=== PATIENT | female | born 1980 | race Caucasian/White ===

== ENCOUNTER → 2017-05-02 | Outpatient (CLI) | payer OTHER ==
[~2017-05-02] MED LIST: LORA-741 PO
== END | disposition home or self-care (01) ==
LOC: C.PAPS 08:59 → MERGE 08:59
PROVIDERS: ATTEND Physician Assistant
DX: Z12.4 Encounter for screening for malignant neoplasm of cervix (principal)

== ENCOUNTER → 2018-04-04 | Outpatient (CLI) | payer OTHER ==
[2018-04-04 15:51] LABS: BASO % 0.4 %; BASO ABS # 0.04 K/uL (0-0.2); EOS % 1.9 %; EOS ABS # 0.17 K/uL (0-0.5); HEMATOCRIT 41.1 % (37-47); HEMOGLOBIN 14.5 g/dL (12.0-16.0); IG# 0.01 K/uL (0.00-0.02); LYMPH % 21.6 %; LYMPH ABS # 1.95 K/uL (1.2-3.4); MEAN CELL VOLUME 89.5 fL (80-100); MEAN CORPUSCULAR HEMOGLOBIN 31.6 pg (25-34); MEAN CORPUSCULAR HGB CONC 35.3 g/dl (32-36); MEAN PLATELET VOLUME 8.9 fL (7.4-10.4); MONO % 6.7 %; NEUT % 69.3 %; NEUT ABS # 6.24 K/uL (1.4-6.5); PLATELET COUNT 303 K/uL (130-400); RED CELL DISTRIBUTION WIDTH CV 12.5 % (11.5-14.5); RED CELL DISTRIBUTION WIDTH SD 40.3 fL (36.4-46.3); WHITE BLOOD COUNT 9.01 K/uL (4.8-10.8)
[2018-04-04 16:37] LABS: ALKALINE PHOSPHATASE 50 U/L (45-117); ALT/SGPT 26 U/L (12-78); AST/SGOT 13 U/L (15-37); BLOOD UREA NITROGEN 18 mg/dl (7-18); CARBON DIOXIDE 26 mmol/L (21-32); CREATININE 1.01 mg/dl (0.60-1.20); GLUCOSE 94 mg/dl (70-99); POTASSIUM 3.8 mmol/L (3.5-5.1); SODIUM 139 mmol/L (136-145); TOTAL PROTEIN 7.9 gm/dl (6.4-8.2)
== END | disposition home or self-care (01) ==
LOC: C.LAB1850 15:04
PROVIDERS: ATTEND Physician Assistant
DX: Z00.00 Encounter for general adult medical examination without abnormal findings (principal); Z01.419 Encounter for gynecological examination (general) (routine) without abnormal findings; R00.2 Palpitations; F41.8 Other specified anxiety disorders; L27.0 Generalized skin eruption due to drugs and medicaments taken internally

== ENCOUNTER 2022-09-11 06:12 | Inpatient (IN) ==
--- NOTE | 2022-09-07 15:49 | Anesthesiology Consultation ---
Date of Service September 07, 2022 Assessment & Plan (1) Encounter for pre-operative examination: - COVID screening: Per assessment on 09/07: No known COVID-19 positive contacts or current COVID-19 related symptoms. Travel screen negative. Patient vaccinated. At surgeon discretion if preop Covid testing being done. - Check test AM DOS - Mild hypokalemia: Potassium 3.1 on recent labs. Will recheck potassium level AM DOS. Chart Review Chart Review: Acceptable Risk for Surgery and Patient NOT seen in Pre Admission Testing Consults Requested none ASA ASA2 Proposed Anesthesia Anesthesia Type: General Risk / Benefits Reviewed With: PT / POA / Parent / Guardian, Accepts Plan and Informed Consent Obtained History Surgery Operation Date: 09/11/22 07:45 Proposed Procedures p C5-C7 Anterior Cervical Discectomy and Fusion, Spinal Cord Monitoring - Dylan Epstein, Height/Weight Height: 5 ft 9 in Weight: 86.183 kg Allergies Allergy/AdvReac Type Severity Reaction Status Date / Time amoxicillin Allergy Severe full body Verified 09/11/22 06:31 hives clavulanic acid Allergy Severe full body Verified 09/11/22 06:31 hives Medications Home Medications Medication Instructions Recorded Confirmed Last Taken lorazepam 0.5 mg tablet 0.5 mg PO DAILY PRN anxiety #30 06/10/20 09/11/22 Unknown tabs multivitamin (Daily Multi-Vitamin 1 tab PO HS 06/10/20 09/11/22 09/04/22 tablet) baclofen 10 mg tablet 10 mg PO BID PRN pain/spasm #60 07/18/22 09/11/22 Unknown tabs gabapentin 300 mg capsule 300 mg PO TID #90 caps 07/18/22 09/11/22 Unknown amlodipine 2.5 mg tablet 2.5 mg PO QAM 09/07/22 09/11/22 09/11/22 05:00 levothyroxine 50 mcg tablet 50 mcg PO QAM 09/07/22 09/11/22 09/11/22 04:00 losartan 50 mg-hydrochlorothiazide 1 tab PO QAM 09/07/22 09/11/22 09/10/22 08:00 12.5 mg tablet sertraline 50 mg tablet 50 mg PO HS 09/07/22 09/11/22 09/10/22 21:00 NPO Date Last Intake of Fluids: 09/10/22 Time Last Intake of Fluids: 19:30 Date Last Intake of Solids: 09/10/22 Past Medical History Medical History Anxiety Dyslipidemia no meds Herniation of cervical intervertebral disc with radiculopathy C5-6 and C6-7 right History of COVID-19 2 yrs ago > not hospitalized Hypertension Hypothyroidism PVC (premature ventricular contraction) Hx, no PVCs/arrhythmia Exercise / Class Metabolic Activity II 4-5 Yardwork/Stairs/Walk up hill Past Family History Family History Grandfather (Paternal) Colorectal cancer Myocardial infarction Grandfather (Maternal) Lung cancer Grandmother (Maternal) Pancreatic cancer Father , Passed at 62yrs Hypertension Traumatic brain injury Mother Borderline blood pressure Denies family history of Ovarian cancer Prostate cancer Breast cancer Uterine cancer Past Surgical History Surgical History Delivery by section x2 [place] teeth extracted Past Anesthesia History No Hx of Anesthesia Complications and No Family Hx of Anesthesia Complications History of PONV No Hx of PONV and No Hx of Motion Sickness Social History Smoking Status: Former smoker Hx Alcohol Use: Yes Hx Substance Use: No Physical Exam ENMT Mouth: no dentition abnormality Thyromental Distance: > or= 3.5 Finger Breadths Mallampati Class: II Neck normal visual inspection Respiratory normal respiratory effort Auscultation: lungs clear to auscultation bilaterally Cardiovascular Rate/Rhythm: regular rate and regular rhythm Lab Results Anesthesia Preop Results Results Anesthesia Widget: WBC 7.22 K/ul (4.8-10.8) 08/30/22 Hgb 13.2 g/dl (12.0-16.0) 08/30/22 Hct 37.4 % (34.1-44.9) 08/30/22 Plt 358 K/uL (130-400) 08/30/22 Na 137 mmol/L (136-145) 08/30/22 K 3.1 mmol/L (3.5-5.1) L 08/30/22 Cl 102 mmol/L (98-107) 08/30/22 CO2 27 mmol/L (21-32) 08/30/22 BUN 20 mg/dl (6-23) 08/30/22 Creat 0.83 mg/dl (0.6-1.2) 08/30/22 Glucose Level 127 mg/dl (70-99(Fasting)) H 08/30/22 PT 10.7 Seconds (9.0-12.0) 08/30/22 PTT 29.9 Seconds (21.0-31.0) 08/30/22 INR 1.0 (0.9-1.1) 08/30/22 POC Ur Test NEG (NEG) 09/11/22 Urine Color Yellow 08/30/22 Urine Appearance Clear (Clear) 08/30/22 Urine pH 5.5 (4.5-7.5) 08/30/22 Urine Specific [place] 1.008 (1.000-1.030) 08/30/22 Urine Protein Negative (Negative) 08/30/22 Urine Glucose (UA) Negative (Negative) 08/30/22 Urine Ketones Negative (Negative) 08/30/22 Urine Blood Negative (Negative) 08/30/22 Urine Nitrite Negative (Negative) 08/30/22 Urine Bilirubin Negative (Negative) 08/30/22 Urine Urobilinogen Negative (Negative) 08/30/22 Urine Leukocyte Esterase Negative (Negative) 08/30/22 SARS-CoV-2, RNA, NAAT Pending 09/11/22 Blood Type B Positive 08/30/22 Antibody Screen NEGATIVE 08/30/22 Testing Laboratory Results 09/11/22 06:37 POC Ur Test NEG Electrocardiogram Date: 08/30/22 NSR at 76bpm. Chest X-Ray Date: 08/30/22 Findings: + NAD
[~2022-09-11 06:12] MED LIST changes: +CLINDAMYCIN/D5W 600 MG/54 ML BAG IV SCH; +CeleBREX 200 MG CAP PO SCH; +GABAPENTIN 900 MG DOSE PO SCH; -LORA-741 PO; +LR 15ML/HR IV SCH
[2022-09-11] MEDS ORDERED: ePHEDrine sulfate 50 MG/ML AMP IV PRN (06:41)
[2022-09-11] MEDS ORDERED: ONDANSETRON INJ 2 MG/ML 2 ML VIAL IV PRN ×2 (06:41→11:05)
[2022-09-11] MEDS ORDERED: ATROPINE SULFATE 0.1 MG/ML 10ML SYR IV PRN (06:41)
[2022-09-11] MEDS ORDERED: ceFAZolin 330 MG/ML 1 GM VIAL ONE (07:01)
[2022-09-11] MEDS ORDERED: ROCURONIUM BROMIDE 10 MG/ML 5 ML VIAL IV ONE (07:25)
[2022-09-11] MEDS ORDERED: MIDAZOLAM HCL 1 MG/ML 2ML VIAL ONE (07:25)
[2022-09-11] MEDS ORDERED: NEOSTIGMINE METHYLSULFATE 1 MG/ML 10ML VIAL ONE (07:25)
[2022-09-11] MEDS ORDERED: DEXAMETHASONE SOD INJ 4 MG/ML VIAL ONE (07:25)
[2022-09-11] MEDS ORDERED: SUCCINYLCHOLINE CHLORIDE 20 MG/ML 10 ML VIAL IV ONE (07:25)
[2022-09-11] MEDS ORDERED: ONDANSETRON INJ 2 MG/ML 2 ML VIAL ONE (07:25)
[2022-09-11] MEDS ORDERED: PHENYLEPHRINE 100MCG/ML 5ML SYR ONE (07:25)
[2022-09-11] MEDS ORDERED: LIDOCAINE 2% MPF LOCAL 5 ML VIAL INFIL ONE (07:25)
[2022-09-11] MEDS ORDERED: ePHEDrine sulfate 50 MG/ML SYR ONE (07:25)
[2022-09-11] MEDS ORDERED: LARYING-O-JET KIT (LTA) ONE (07:25)
[2022-09-11] MEDS ORDERED: GLYCOPYRROLATE 0.2 MG/ML VIAL ONE (07:25)
[2022-09-11] MEDS ORDERED: PROPOFOL IV EMULSION 10 MG/ML 20 ML VIAL IV ONE ×2 (07:25→09:16)
[2022-09-11] MEDS ORDERED: fentaNYL citrate 100 MCG/2 ML VIAL ONE (07:25)
--- NOTE | 2022-09-11 07:27 | History & Physical Bridge Note ---
Date of Service September 11, 2022 History & Physical Bridge Note I have examined the patient, reviewed the History & Physical and in the interval since the performance of the History & Physical I have noted the following changes of clinical significance: no changes noted
--- NOTE | 2022-09-11 07:28 | History & Physical Report ---
Date of Service September 11, 2022 Assessment & Plan (1) Cervical radiculopathy at C6: Plan: C5-C7 anterior cervical discectomy and fusion History of Present Illness Chief Complaint: Neck and arm pain Primary Care Provider: Dawna Richmond PA-C This is a 41-year-old female presents with neck and arm pain after failing course of nonoperative care is here for surgical invention. Allergies Allergy/AdvReac Type Severity Reaction Status Date / Time amoxicillin Allergy Severe full body Verified 09/11/22 06:31 hives clavulanic acid Allergy Severe full body Verified 09/11/22 06:31 hives Home Medications Medication Instructions Recorded Confirmed Type lorazepam 0.5 mg tablet 0.5 mg PO DAILY PRN anxiety #30 06/10/20 09/11/22 Rx tabs multivitamin (Daily Multi-Vitamin 1 tab PO HS 06/10/20 09/11/22 History tablet) baclofen 10 mg tablet 10 mg PO BID PRN pain/spasm #60 07/18/22 09/11/22 Rx tabs gabapentin 300 mg capsule 300 mg PO TID #90 caps 07/18/22 09/11/22 Rx amlodipine 2.5 mg tablet 2.5 mg PO QAM 09/07/22 09/11/22 History levothyroxine 50 mcg tablet 50 mcg PO QAM 09/07/22 09/11/22 History losartan 50 mg-hydrochlorothiazide 1 tab PO QAM 09/07/22 09/11/22 History 12.5 mg tablet sertraline 50 mg tablet 50 mg PO HS 09/07/22 09/11/22 History Past Med/Surg History Medical History Anxiety Dyslipidemia no meds Herniation of cervical intervertebral disc with radiculopathy C5-6 and C6-7 right History of COVID-19 2 yrs ago > not hospitalized Hypertension Hypothyroidism PVC (premature ventricular contraction) Hx, no PVCs/arrhythmia Surgical History Delivery by section x2 [place] teeth extracted Family History Grandfather (Paternal) Colorectal cancer Myocardial infarction Grandfather (Maternal) Lung cancer Grandmother (Maternal) Pancreatic cancer Father , Passed at 62yrs Hypertension Traumatic brain injury Mother Borderline blood pressure Denies family history of Ovarian cancer Prostate cancer Breast cancer Uterine cancer Social History Smoking Status: Former smoker Tobacco Type: Cigarettes Smoking End Date: 2 yrs ago; Second Hand Exposure: No; Do You Dip or Chew Tobacco: No; Tobacco Cessation Education Requested by Patient: No Hx Alcohol Use: Yes Alcohol type: wine and hard liquor Hx Substance Use: No Preferred Language: Gabonese Communication Ability: Effective Visual Impairment: No Limitations Hearing Ability: Normal Manager Placement Required: No Beliefs That Will Affect Care: None marital status: Current Living Situation: Spouse current occupational status: employed current occupation: Nurse- in [place] How many Children do You have: 2 How many Children do You have Comment: 1 boy 1 girl Other Information That Helps Us Care for You: No Feels Safe at Home: Yes Safety Concerns: Feels Safe At This Time Childhood Exposure to Second-Hand Smoke: Yes Dental Care, Regularly: Yes Physical Activity Frequency: 3-4 Times per Week Seatbelt Use: always Sunscreen Use: Yes Assistive Devices: Glasses Physical Exam Physical Exam: Patient is alert and oriented Heart regular rhythm Lungs clear Results & Data Results & Data ([facility]) Vital Signs (Past 12 Hours) Vital Signs Temp Pulse Resp BP Pulse Ox O2 Del Method 09/11/22 06:33 37.5 C 81 20 163/98 H 98 Room Air
[2022-09-11 07:59] LABS: BUN Creatinine Ratio 17.7 (10-20); Calcium 9.3 mg/dl (8.5-10.1); Creatinine Clr Calc Pharmacy 112.1 ml/min; Est GFR (African American) 107.8 ml/min; Potassium 3.8 mmol/L (3.5-5.1)
[2022-09-11] MEDS ORDERED: HYDROmorphone INJ 2 MG/ML SYR/VIAL ONE (08:04)
[2022-09-11] MEDS ORDERED: FLOSEAL HEMOSTATIC MATRIX 10ML TOP ONE (08:34)
--- NOTE | 2022-09-11 09:28 | Operative Report ---
Post Operative Report Pre & Post Diagnosis Operation Date: 09/11/22 07:45 Pre-Op Diagnosis: Cervical spinal stenosis with herniated nucleus pulposus and radiculopathy C5-C6 C6-C7. Post-Op Diagnosis: Same I identified the patient and participated in the time-out.: Yes Procedure Operation Date: 09/11/22 07:45 Actual Procedures #1 anterior cervical discectomy with bilateral foraminotomies C5-C6 C6-C7. #2 anterior cervical arthrodesis C5-C6 C6-C7. #3 placement of globus coalition cage 7 mm in height filled with I factor at C5-C6 and 8 mm in height at C6-C7. Surgeon Dylan Epstein, Head Kiln Operator Amaris Benitez Estimated Blood Loss 10 Findings Consistent with Post-Op Diagnosis Specimens None Indications This is a 41-year-old female who presents to the emergency diagnosis of failed course of nonoperative care she is here for surgical invention. Description of Procedure Patient was met with identified informed consent obtained. Patient was then taken to the operative suite underwent patient placed in supine position the Gonzalo table the head Barrientos templer head. All bony prominences well-padded eyes inspected to ensure no external pressure placed upon the. This point the anterior cervical spine was prepped and draped in a sterile fashion. With assistance of fluoroscopy identify the C6 vertebral body and a transverse incision was placed along the right anterior aspect of the cervical spine overlying this region. Blunt dissection with assistance of bipolar cautery was then performed down to expose the anterior cervical spine from C5-C6. Self- retaining retractors placed. Then performed a complete discectomy of C5-C6 out to the uncovertebral joints bilaterally. [place] distraction pins utilized to assist in visualization. Removed all posterior annular fibers and longitudinal ligament bilateral foraminotomies performed. Endplates burred to subcortical any bone and 7 mm coalition cage filled with I factor was tapped in position and screwed into place. And then proceeded to C6-C7. Again complete discectomy performed out to the uncovertebral's bilaterally. [place] distractor pins again utilized. Removed all posterior fibers longitudinal ligament and bilateral foraminotomies performed as well as removing disc fragments within the right foramen. After this complete endplates were burred to subcortical bleeding bone and 8 mm globus coalition filled with I factor tapped in position and screwed into place. The incision was then copiously irrigated explored to ensure no damage to surrounding structures or remaining bleeding. 10 round NAIN drain inserted. The incision was then closed with 2 Vicryl in a fashion of 4 Monocryl for final skin closure. Steri-Strip sterile dressings placed. Patient waken taken recovery in stable condition. Please note spinal cord monitoring was utilized at the procedure no changes noted. Lastly Amaris Benitez was present at the entire surgeon while the patient positioning complex portion of the surgery and final skin closure. I attest to the content of the Intraoperative Record and any orders documented therein. Any exceptions are noted below.
[2022-09-11] MEDS: fentaNYL citrate 100 MCG/2 ML VIAL IV PRN ×2 (10:00→10:18)
--- NOTE | 2022-09-11 10:55 | Anesthesiology Progress Note ---
Date of Service September 11, 2022 Anesthesia Post Procedure Vital Signs Vital Signs: Temp Pulse Resp BP BP Pulse Ox O2 Del Method 09/11/22 10:35 87 15 147/87 H 97 Nasal Cannula 09/11/22 10:25 97.3 F L 74 14 138/83 98 Nasal Cannula 09/11/22 10:15 84 14 142/96 H 98 Nasal Cannula 09/11/22 10:05 82 16 131/85 97 Nasal Cannula 09/11/22 09:55 107 H 17 161/101 H 99 Oxymask 09/11/22 09:45 71 13 114/77 99 Oxymask 09/11/22 09:35 97.9 F 77 18 146/88 H 97 Oxymask 09/11/22 06:33 99.5 F 81 20 163/98 H 98 Room Air O2 Flow Rate 09/11/22 10:35 2 09/11/22 10:25 2 09/11/22 10:15 2 09/11/22 10:05 2 09/11/22 09:55 5 09/11/22 09:45 5 09/11/22 09:35 5 09/11/22 06:33 Pain Intensity Right Neck: Pain Intensity: 4 Transfer of Care Handoff Completed per policy Notes Mental Status: alert / awake / arousable and participated in evaluation Patient Amnestic to Procedure: Yes Nausea / Vomiting: adequately controlled Pain: adequately controlled Airway Patency, RR, SpO2: stable & adequate BP & HR: stable & adequate Hydration State: stable & adequate Anesthetic Complications: no major complications apparent and Pt Satisfied with anesthetic care
[2022-09-11] MEDS ORDERED: HYDROmorphone INJ 1 MG/ML SYRINGE IV PRN (11:05)
[2022-09-11] MEDS ORDERED: bisacodyL 10 MG SUPP PR PRN (11:05)
[2022-09-11] MEDS ORDERED: ALUMINUM/MAGNESIUM SUSP 30 ML UDC PO PRN (11:05)
[2022-09-11] MEDS ORDERED: hydrOXYzine HCl 25 MG TAB PO PRN (11:05)
[2022-09-11] MEDS ORDERED: METOCLOPRAMIDE HCL INJ 5 MG/ML 2 ML VIAL IV PRN (11:05)
[2022-09-11] MEDS ORDERED: ONDANSETRON 4 MG OD TAB PO PRN (11:05)
[2022-09-11] MEDS ORDERED: traMADol HCL 50 MG TABLET PO PRN (11:05)
[2022-09-11] MEDS ORDERED: dexAMETHasone 8 MG in SYRINGE 0 ML IV PRN (11:05)
[2022-09-11] MEDS ORDERED: HYDROmorphone INJ 0.5 MG/0.5 ML SYR IV PRN (11:05)
[2022-09-11] MEDS ORDERED: NALOXONE HCL 0.4 MG/1 ML VIAL/CARP IV PRN (11:05)
[2022-09-11] MEDS ORDERED: FAMOTIDINE 20 MG TAB PO PRN (11:05)
[2022-09-11] MEDS ORDERED: PROMETHAZINE HCL 12.5 MG in SODIUM CHLORIDE 0.9% 50 ML IV PRN (11:05)
[2022-09-11] MEDS ORDERED: ACETAMINOPHEN 500 MG TAB PO PRN (11:05)
[2022-09-11] MEDS ORDERED: SOD PHOSPHATE/SOD BIPHOSPHATE ENEMA 132 ML BTL PR PRN (11:05)
[2022-09-11] MEDS ORDERED: diphenhydrAMINE Capsule 25 MG CAP PO PRN (11:05)
[2022-09-11] MEDS ORDERED: LORazepam 0.5 MG TAB PO PRN (11:05)
[2022-09-11] MEDS ORDERED: LORazepam 0.5 MG in SYRINGE 0 ML IV PRN (11:05)
[2022-09-11] MEDS ORDERED: MAGNESIUM HYDROXIDE SUSP 30 ML UDC PO PRN (11:05)
[2022-09-11] MEDS ORDERED: RACEPINEPHRINE 2.25% NEBU SOLN 0.5 ML VIAL INH PRN (11:05)
--- NOTE | 2022-09-11 11:06 | Fluoroscopy Report ---
[place] cervical 2-3V HISTORY: 41 years-old Female ACDF C5-7 cervical spinal fusion COMPARISON: MRI cervical spine 07/18/2022 TECHNIQUE: 3 spot fluoroscopic images of the cervical spine were obtained utilizing 21.1 seconds fluo roscopy time FINDINGS: Anterior plate and screw fusion with discectomy at C5-C6 and C6-C7. Endotracheal tube is present. A r adiopaque sponge projects within the soft tissues anterior to the C6-C7 level. Surgical drainage cath eter. IMPRESSION: Fluoroscopic assistance as above. ACT 112: Negative or not required by law. The above report was generated using voice recognition software. It may contain grammatical, syntax o r spelling errors. Electronically signed by: Nathan Barber M.D. 09/11/2022 11:05 AM
[2022-09-11] MEDS: LACTATED RINGER'S 1,000 ML IV SCH ×2 (11:34→22:11)
[2022-09-11] MEDS: oxyCODONE HCL IR 5 MG TAB (IMMEDIATE RELEASE) PO PRN ×2 (11:34→16:19)
[2022-09-11] MEDS ORDERED: GABAPENTIN 300 MG CAP PO SCH (14:00)
[2022-09-11] MEDS ORDERED: FLUARIX QUADRIVALENT 0.5 ML SYR IM ONE (15:27)
[2022-09-11] MEDS: CLINDAMYCIN/D5W 600 MG/50 ML BAG IV SCH ×2 (16:20→23:57)
[2022-09-11] MEDS ORDERED: Nursing to Pharmacy Communication SCH (17:30)
[2022-09-11] MEDS: ACETAMINOPHEN 1,000 MG/100 ML VIAL IV PRN (19:46)
[2022-09-11] MEDS ORDERED: MULTIVITAMIN TAB PO SCH (21:00)
[2022-09-11] MEDS ORDERED: SERTRALINE HCL 50 MG TABLET PO SCH (21:00)
[2022-09-11] MEDS ORDERED: DOCUSATE SODIUM/SENNA 50/8.6MG TAB PO SCH (21:00)
[2022-09-12] MEDS: oxyCODONE HCL IR 5 MG TAB (IMMEDIATE RELEASE) PO PRN ×2 (00:35→06:19)
[2022-09-12] MEDS: ACETAMINOPHEN 1,000 MG/100 ML VIAL IV PRN (05:52)
[2022-09-12] MEDS ORDERED: POLYETHYLENE (MIRALAX) 17 GM PACK PO SCH (06:00)
[2022-09-12] MEDS ORDERED: LEVOTHYROXINE SODIUM 50 MCG TABLET PO SCH (06:30)
[2022-09-12] MEDS ORDERED: FLUARIX QUADRIVALENT 0.5 ML SYR IM ONE (09:00)
[2022-09-12] MEDS ORDERED: LOSARTAN/HCTZ 50/12.5MG TAB PO SCH (09:00)
[2022-09-12] MEDS ORDERED: amLODIPine BESYLATE 5 MG TAB PO SCH (09:00)
--- NOTE | 2022-09-12 10:25 | Discharge Summary ---
Date of Service September 12, 2022 Admission HPI Per Admitting Provider This is a 41-year-old female presents with neck and arm pain after failing course of nonoperative care is here for surgical invention. Principal Diagnosis Cervical radiculopathy Discharge Data Allergies Allergy/AdvReac Type Severity Reaction Status Date / Time amoxicillin Allergy Severe full body Verified 09/11/22 06:31 hives clavulanic acid Allergy Severe full body Verified 09/11/22 06:31 hives Procedures Performed Operation Date: 09/11/22 07:45 Actual Procedures p C5-C7 Anterior Cervical Discectomy and Fusion, Spinal Cord Monitoring - Dylan Epstein DO Ordered Studies 09/11/22 07:45 [place] cervical 2-3V Routine Hospital Course (1) Herniation of cervical intervertebral disc with radiculopathy: Patient underwent anterior cervical discectomy fusion tolerated well was negative orthopedic floor postoperatively postop day 1 she was swallowing well no hoarseness. NAIN drain decreased probably. Marked improvement of her arm pain eccentric to testing socially discharged home. Discharge orders instructions from the chart for further review. Total Time Total Time Spent Total Time Spent (In Minutes): 20 minutes Discharge Plan Discharge Items Patient Disposition: Home - Self-Care Reason For Visit: Spinal Stenosis, Cervical Region Discharge Diagnosis: Cervical radiculopathy Activity: As commented below Non-emergency contact: Primary Care Provider Call non-emergency contact if: you have any medication questions Follow-up/Referrals: Dawna Richmond PA-C [Primary Care Provider] - Diet: Regular Addtl Attending Provider Instructions: ACTIVITY RECOMMENDATIONS: SELF CARE INSTRUCTIONS AFTER CERVICAL FUSIONS 1. No smoking. Smoking drastically decreases the chance of a solid fusion. 2. No bending, lifting more than 5 pounds, or twisting (roll like a log when turning in bed). 3. You may shower 3 days after surgery. Thoroughly dry wound. Do not soak in the tub. 4. Cervical collar: Must be worn at all times including sleeping. You may remove the brace only to bath, eat and if you are sitting in a recliner. 5. Please walk as much as you can for exercise. Gradually increase the distance that you walk as your endurance increases. SPECIAL CARE INSTRUCTIONS: VERY IMPORTANT TO READ AND REVIEW A. Do not take any anti-inflammatory medications (i.e. Indocin, Advil, Aspirin, Naprosyn, Aleve, Motrin, etc.) as these may inhibit the chance of a solid fusion. Tylenol is okay to take. B. Your surgical incision has been closed with a cosmetic suture under the skin that will dissolve in about 6 weeks. In 14 days, you can use a pair of clean scissors and cut the suture that is left outside of the skin at the ends of your incision. C. Complications are uncommon, but please contact us if you have any signs or symptoms of: 1. wound infection (fever higher than 102.5 degrees F, redness, separation of wound, drainage, or increasing pain from the incision) 2. blood clots in legs (pain, swelling, redness and warmth in legs) 3. urinary tract infection (fever higher than 102.5 degrees, burning upon urination or increased frequency of urination) 4. nerve problems (inability to walk on your toes or heels, numbness, loss of bowel or bladder control) 5. any other symptoms that concern you. D. Please call the office at if you have any concerns or questions about your operation or recovery. MANAGING PAIN AFTER SPINAL SURGERY 1. Narcotic medication is intended for short-term use and will be provided for surgical pain. Surgical pain usually lasts for a period of 4-6 weeks. Narcotic medication includes Percocet, Vicodin, Darvocet, Tylenol #3 or Lortab. 2. Longer-term pain is more appropriately treated with non-narcotic medication such as Tylenol ES. 3. Muscle spasm is not appropriately treated with narcotics. Muscle relaxers such as Soma, Flexeril or Skelaxin can be used along with Tylenol ES. 4. Remember that we all live with some "aches and pains". This is not unusual or uncommon after an injury or as we get older. 5. We will provide appropriate medication within the normal guidelines of their prescribed use. We will also be very cautious and aware of potential abuse and extended duration of patients' medication needs. 6. Please allow 2-3 days to process refills. Prescriptions will not be mailed but must be picked up at the office. FOLLOW UP VISIT: Keep your scheduled follow-up appointment. Any questions, please call the office at . Pending Studies at Discharge: No Stand-Alone Forms: [email or web address], Smoking Cessation Medications and DC Order Prescriptions: New tramadol 50 mg tablet 50 mg PO Q6H PRN (Reason: pain, moderate) Qty: 30 0RF oxycodone 5 mg tablet 5 mg PO Q6H PRN (Reason: pain, severe) Qty: 20 0RF Continued baclofen 10 mg tablet 10 mg PO BID PRN (Reason: pain/spasm) Qty: 60 0RF multivitamin [Daily Multi-Vitamin] Tablet 1 tab PO HS lorazepam 0.5 mg tablet 0.5 mg PO DAILY PRN (Reason: anxiety) Qty: 30 0RF amlodipine 2.5 mg tablet 2.5 mg PO QAM levothyroxine 50 mcg tablet 50 mcg PO QAM losartan-hydrochlorothiazide 50-12.5 mg tablet 1 tab PO QAM sertraline 50 mg tablet 50 mg PO HS Rx Instructions: 1 tablet every night Discharge Orders: Discharge Order (Routine); Ordered 09/12/22 Ordered By: Dylan Epstein Admission Data Admit Date/Time: 09/11/22 09:33 Attending Provider: Dylan Epstein Admit Provider: Dylan Epstein Primary Care Provider: Dawna Richmond
== END 2022-09-12 11:58 | disposition home or self-care (01) | DRG 473 ==
LOC: ASU 06:12 → 3E 09:33